=== PATIENT | male | born 1990 | race Caucasian/White ===

== ENCOUNTER 2018-12-25 11:56 | Emergency (ER) | payer OTHER ==
[2018-12-25] MEDS: KETOROLAC 60 MG INJ IM (12:41)
[2018-12-25] MEDS: DIAZEPAM 5 MG TAB PO (12:41)
[2018-12-25] MEDS: DEXAMETHASONE 10 MG/ML 1 ML INJ IM (12:41)
== END 2018-12-25 13:17 | disposition home or self-care (01) ==
LOC: FTE 11:56
DX: M54.5 Low back pain (principal)
CPT/HCPCS: 96372; 99284-25